=== PATIENT | male | born 1995 | race Caucasian/White ===

== ENCOUNTER 2016-07-15 00:21 | Emergency (ER) | payer BC ==
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
== END 2016-07-15 00:32 | disposition disaster alternative care site (69) ==
LOC: GACC 00:21
PROC: 0HQ0XZZ Repair Scalp Skin, External Approach (ICD-10-PCS; principal; 2016-07-15)
DX: S01.01XA Laceration without foreign body of scalp, initial encounter (principal); F10.129 Alcohol abuse with intoxication, unspecified; F17.210 Nicotine dependence, cigarettes, uncomplicated; W01.190A Fall on same level from slipping, tripping and stumbling with subsequent striking against furniture, initial encounter; Y92.89 Other specified places as the place of occurrence of the external cause

== ENCOUNTER → 2016-07-15 | Outpatient (CLI) | payer BC | END | disposition disaster alternative care site (69) | LOC: GAMB 00:01 | DX: F10.10 Alcohol abuse, uncomplicated (principal); S01.91XA Laceration without foreign body of unspecified part of head, initial encounter; R51 Headache; R41.82 Altered mental status, unspecified; W01.0XXA Fall on same level from slipping, tripping and stumbling without subsequent striking against object, initial encounter | CPT/HCPCS: A0425; A0429 ==